=== PATIENT | female | born 1985 | race African-American/Black ===

== ENCOUNTER 2019-11-29 16:58 | Emergency (ER) | payer BC, OTHER ==
[~2019-11-29] VITALS: Ht 167.6 cm; Wt 96.0 kg
[~2019-11-29 16:58] MED LIST: DOXY100C14 PO; HYDR-3164 PO; NAPR-514 PO; PREN1TAB58 PO; methergine PO
--- NOTE | 2019-11-29 18:29 | PHYS DOC ---
Past Medical History Past Medical History: Arthritis, Asthma Past Surgical History: Other Additional Past Surgical Histo: LEFT ARM Smoking Status: Current Every Day Smoker Alcohol Use: None Drug Use: None Social History Narrative: LAST USE 4 MONTHS AGO General Adult EDM: Chief Complaint: ABSCESS HPI: HPI: 34-year-old AA female past medical history of asthma and arthritis ([employer] employee), presents to the ED with complaints of painful swollen bump in her left inguinal region, patient is concerned for an abscess. States this lesion started today after she shaved yesterday. Has had a history of an abscess once before in the same area that resolved without intervention. No known history of MRSA. Complains of pain due to friction from underwear rubbing against lesion. Review of systems: Denies associated fever, chills, cough, dyspnea, nausea, vomiting, sore throat, abscess, neck stiffness, headache, chest pain or pressure, nausea, vomiting, abnormal vaginal discharge bleeding or odor, erythematous rash, back pain, leg swelling or hemoptysis. Review of Systems: Review of Systems: Constitutional: Denies fever or chills. [] Eyes: Denies change in visual acuity. [] HENT: Denies nasal congestion or sore throat. [] Respiratory: Denies cough or shortness of breath. [] Cardiovascular: Denies chest pain or edema. [] GI: Denies abdominal pain, nausea, vomiting, bloody stools or diarrhea. [] : Denies dysuria. [] Musculoskeletal: Denies back pain or joint pain. [] Integument: Denies rash. [] Neurologic: Denies headache, focal weakness or sensory changes. [] Endocrine: Denies polyuria or polydipsia. [] Lymphatic: Denies swollen glands. [] Psychiatric: Denies depression or anxiety. [] Heart Score: Risk Factors: Risk Factors: DM, Current or recent (<one month) smoker, HTN, HLP, family h istory of CAD, obesity. Risk Scores: Score 0 - 3: 2.5% MACE over next 6 weeks - Discharge Home Score 4 - 6: 20.3% MACE over next 6 weeks - Admit for Clinical Observation Score 7 - 10: 72.7% MACE over next 6 weeks - Early Invasive Strategies Allergies: Allergies: Allergies Coded Allergies Type Severity Reaction Last Updated Verified No Known Drug Allergies 12/1/15 No Physical Exam: PE: Constitutional: Well developed, well nourished, no acute distress, non-toxic appearance HENT: Normocephalic, atraumatic, bilateral external ears normal, oropharynx moist, no oral exudates, nose normal. [] Eyes: PERRLA, EOMI, conjunctiva normal, no discharge. [] Neck: Normal range of motion, no tenderness, supple, no stridor. [] Cardiovascular:Heart rate regular rhythm, no murmur [] Lungs & Thorax: Bilateral breath sounds clear to auscultation [] Abdomen: Bowel sounds normal, soft, no tenderness, no masses, no pulsatile masses. [] Skin: Warm, dry, no erythema, no rash. [] Back: No tenderness, no CVA tenderness, Extremities: No tenderness, no cyanosis, no clubbing, ROM intact, no edema, 3 x 3cm soft fluctuant nonpulsatile abscess left proximal inguinal fold w/ttp Neurologic: Alert and oriented X 3, normal motor function, normal sensory function, no focal deficits noted. Psychologic: Affect normal, judgement normal, mood normal. [] Current Patient Data: Vital Signs: Vital Signs Date Time Temp Pulse Resp B/P (MAP) Pulse Ox O2 Delivery O2 Flow Rate FiO2 11/29/19 17:41 98.1 104 16 165/102 (123) 100 Room Air 98.1 EKG: EKG: [] Radiology/Procedures: Radiology/Procedures: Indication: abscess Procedure: The patient was positioned appropriately. Local anesthesia was 1% lidocaine. An incision was then made over the apex of the lesion and 5-10cc material was expressed. The drainage cavity was irrigated and packed with sterile gauze. The patients tetanus status updated as needed. The patient tolerated the procedure well. Complications: none. Impression: 34-year-old female with inguinal abscess status post I&D with packing. Dry dressings applied by RN. Patient was given strict instructions to not allow packing to be removed. Wound check in 48 hours or if wound should become more tender, red or patient should develop a fever-strict ED return precautions given. Encourage PMD follow-up. All patient's questions were answered and she was stable at time of discharge. Course & Med Decision Making: Course & Med Decision Making Pertinent Labs and Imaging studies reviewed. (See chart for details) [] Dragon Disclaimer: Dragon Disclaimer: This electronic medical record was generated, in whole or in part, using a voice recognition dictation system. Departure Departure Impression: Primary Impression: Abscess Additional Impression: Encounter for incision and drainage procedure Disposition: HOME, SELF-CARE Condition: STABLE Referrals: NO PCP (PCP) Patient Instructions: Abscess, Incision and Drainage, Care After Justicifation of Admission Dx: Justifications for Admission: Justification of Admission Dx: N/A DONNY AYON DO Nov 29, 2019 18:29
[2019-11-29] MEDS ORDERED: DIPH,PERTUSS(ACELL),TET VAC/PF 0.5 ML SYRINGE. VAX IM ONE (18:30)
[2019-11-29] MEDS ORDERED: LIDOCAINE 1% PF 5 ML VIAL. INJ ONE (18:45)
[2019-11-29] MEDS ORDERED: fentaNYL PF VIAL 100 MCG/2 ML VIAL ONE (19:13)
[2019-11-29 19:48] VITALS: BP 147/98
== END 2019-11-29 19:48 | disposition home or self-care (01) ==
LOC: ER 16:58
DX: L02.214 Cutaneous abscess of groin (principal); M19.90 Unspecified osteoarthritis, unspecified site; J45.909 Unspecified asthma, uncomplicated; F17.200 Nicotine dependence, unspecified, uncomplicated; Z98.890 Other specified postprocedural states
CPT/HCPCS: 10060; 90471; 90715; 99283; J3490

== ENCOUNTER 2019-12-01 19:09 | Emergency (ER) | payer BC ==
[~2019-12-01] VITALS: Ht 167.6 cm; Wt 96.2 kg
[2019-12-01 19:17] VITALS: BP 148/81
[2019-12-01] MEDS ORDERED: SMZ/TMP 800/160MG TABLET. PO ONE (19:45)
[2019-12-01] MEDS ORDERED: SULF1TAB24 PO (19:51)
[2019-12-01] MEDS ORDERED: TRAM50TA PO (19:51)
--- NOTE | 2019-12-01 19:53 | PHYS DOC ---
Past Medical History Past Medical History: Arthritis, Asthma Past Surgical History: Other Additional Past Surgical Histo: LEFT ARM Smoking Status: Current Every Day Smoker Alcohol Use: None Drug Use: None General Adult EDM: Chief Complaint: SKIN PROBLEM HPI: HPI: Patient is a 34 year old female who presents for recheck of an abscess to her left groin. Patient had incision and drainage with packing placed 2 days ago. She states that pain has improved significantly. She denies any fever. She does indicate that swelling has also gone down. [] Review of Systems: Review of Systems: Constitutional: Denies fever or chills. [] Respiratory: Denies cough or shortness of breath. [] Cardiovascular: Denies chest pain or edema. [] Integument: Positive abscess, status post incision and drainage. [] Neurologic: Denies headache, focal weakness or sensory changes. [] Heart Score: Risk Factors: Risk Factors: DM, Current or recent (<one month) smoker, HTN, HLP, family history of CAD, obesity. Risk Scores: Score 0 - 3: 2.5% MACE over next 6 weeks - Discharge Home Score 4 - 6: 20.3% MACE over next 6 weeks - Admit for Clinical Observation Score 7 - 10: 72.7% MACE over next 6 weeks - Early Invasive Strategies Current Medications: Current Medications Medications (Trade) Dose Ordered Sig/Shoshana Start Time Stop Time Status Last Admin Dose Admin Trimethoprim/ Sulfamethoxazole (Bactrim Ds) 1 tab 1X ONCE 12/01/19 19:45 12/01/19 19:47 DC Allergies: Allergies: Allergies Coded Allergies Type Severity Reaction Last Updated Verified No Known Drug Allergies 05/20/15 No Physical Exam: PE: Constitutional: Well developed, well nourished, no acute distress, non-toxic appearance. [] Cardiovascular: Regular rate and rhythm [] Lungs & Thorax: Bilateral breath sounds clear to auscultation [] Skin: Left groin demonstrates continued induration with mild erythema. [] Current Patient Data: Vital Signs: Vital Signs Date Time Temp Pulse Resp B/P (MAP) Pulse Ox O2 Delivery O2 Flow Rate FiO2 12/01/19 19:17 98.2 95 18 99 Room Air 98.2 EKG: EKG: [] Radiology/Procedures: Radiology/Procedures: [] Course & Med Decision Making: Course & Med Decision Making Pertinent Labs and Imaging studies reviewed. (See chart for details) [] Dragon Disclaimer: Dragon Disclaimer: This electronic medical record was generated, in whole or in part, using a voice recognition dictation system. Departure Departure Impression: Primary Impression: Encounter for recheck of abscess following incision and drainage Disposition: 01 HOME, SELF-CARE Condition: STABLE Referrals: NO PCP (PCP) Patient Instructions: Abscess Scripts Tramadol Hcl (TRAMADOL HCL) 50 Mg Tablet 50 MG PO Q6HRS PRN for PAIN, #12 TAB Prov: OTTO SAMAYOA Jr. DO 12/01/19 Sulfamethoxazole/Trimethoprim (BACTRIM DS TABLET) 1 Each Tablet 1 TAB PO BID for 10 Days, #20 TAB 0 Refills Prov: OTTO SAMAYOA Jr. DO 12/01/19 Justicifation of Admission Dx: Justifications for Admission: Justification of Admission Dx: Comment: (Not applicable) OTTO SAMAYOA Jr. DO Dec 01, 2019 19:52
[2019-12-01] MEDS ORDERED: IBUPROFEN 400 MG TABLET. PO ONE (20:00)
== END 2019-12-01 20:03 | disposition home or self-care (01) ==
LOC: ER 19:09
DX: L02.214 Cutaneous abscess of groin (principal); R60.0 Localized edema; L53.9 Erythematous condition, unspecified; M19.90 Unspecified osteoarthritis, unspecified site; J45.909 Unspecified asthma, uncomplicated; F17.200 Nicotine dependence, unspecified, uncomplicated; Z98.890 Other specified postprocedural states
CPT/HCPCS: 99283